=== PATIENT | female | born 1990 | race Hispanic/Latino ===

== ENCOUNTER 2019-10-17 14:00 | Emergency (ER) | payer OTHER, SELFPAY ==
[2019-10-17 14:38] VITALS: BP 103/74; PULSE 92; RESP 16; TEMP 37.1; O2SAT 98
[2019-10-17] MEDS: IBUPROFEN 400 MG TABLET 800 MG PO (15:06)
--- NOTE | 2019-10-17 17:12 | ED_ITS ---
HPI - Headache <MEE Diaz Last Filed: 10/17/19 20:58> General Chief Complaint: Headache Stated Complaint: headach and R ear aching fell at work hit head Time Seen by Provider: 10/17/19 17:12 Source: patient and parts interpreter Mode of arrival: Ambulatory Limitations: no limitations History of Present Illness HPI Narrative: This 29 year old female comes to ED with headache and right earache. She states that she fell at work on Monday where snow was not shoveled, slipped and fell backwards and hit her head on the pavement. She states that she felt woozy for a bit but did not pass out. She rested for about 10 minutes and got up and went back to work. States that she had some headache and mild soreness in her neck and back, but no trouble going back to work, walking etc.. She states that she has not had any vision change or vomiting, however she has had a cough for about a week with a little bit of sore throat when she coughs. She has not had any known fevers. Monday after she fell in addition to the headache she also noted that she had an earache which has been getting worse. Headache has been persistent but not acutely worse. She states that she came in today mainly due to the earache progressively getting worse over the last few days. She states maybe her chest can feel a little bit tight at times with a cough but no acute dyspnea or chest pain. She denies any sinus pain. She denies any possibility of . She denies any chronic medical problems. She has never been a smoker. She does not have a primary care provider. 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 Related Data Previous Rx's Medication Instructions Recorded amoxicillin-pot clavulanate 1 tab PO Q12H #20 tab 10/17/19 [Augmentin] naproxen 500 mg PO BID PRN #20 tab 10/17/19 Allergies Allergy/AdvReac Type Severity Reaction Status Date / Time No Known Drug Allergies Allergy Verified 10/17/19 14:43 Review of Systems <MEE Diaz Last Filed: 10/17/19 20:58> Review of Systems ROS Unobtainable: All systems reviewed & are unremarkable except as noted in HPI and below Patient History <MEE Diaz Last Filed: 10/17/19 20:58> Medical History (Updated 10/17/19 @ 18:15 by Anh Souza PA-C) No chronic problems (Acute) Surgical History (Updated 10/17/19 @ 18:15 by Anh Souza PA-C) Status post (Acute) Social History Smoking Status: Never smoker Smoking Status: Never smoker Substance Use Type: does not use Exam <Anh Souza PA-C - Last Filed: 10/17/19 20:58> Narrative Exam Narrative: GENERAL APPEARANCE: Patient sitting comfortably, in no distress. HEAD: No sinus TTP. No scalp laceration or hematoma visible EYES: PERRL, EOMI. EARS: Normal auditory canals, right TM is intact, erythematous and retracted, left is normal ORAL CAVITY: Normal oropharynx. THROAT: No erythema or exudate, PND noted NECK/THYROID: Neck supple, full range of motion, no cervical lymphadenopathy. LUNGS: Clear to auscultation bilaterally, persistent dry cough on exam. HEART: RRR without murmur, nl S1, S2, no S3 or S4. EXTREMITIES: No cyanosis or edema DERMATOLOGIC: No exanthem NEUROLOGIC: Alert, oriented, normal speech, gait, and coordination MUSCULOSKELETAL: No point tenderness over the cervical, thoracic or lumbar spine. Mild tenderness over the proximal border of the right trapezius and strap muscle attachments. Full range of motion of the C-spine. Normal range of motion of upper and lower extremities Initial Vital Signs Initial Vital Signs: Vital Signs Temperature 98.7 F 10/17/19 14:38 Pulse Rate 92 H 10/17/19 14:38 Respiratory Rate 16 10/17/19 14:38 Blood Pressure 103/74 10/17/19 14:38 Pulse Oximetry 98 10/17/19 14:38 <April Armando MD - Last Filed: 10/21/19 12:20> Initial Vital Signs Initial Vital Signs: Vital Signs Temperature 98.7 F 10/17/19 14:38 Pulse Rate 92 H 10/17/19 14:38 Respiratory Rate 16 10/17/19 14:38 Blood Pressure 103/74 10/17/19 14:38 Pulse Oximetry 98 10/17/19 14:38 Course <Anh Souza PA-C - Last Filed: 10/17/19 20:58> Course Additional Information: 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 Suspect this is the source of her headache. She has also had upper respiratory symptoms with cough for about a week, well prior to her fall. Suspect given the appearance of her eardrum today she has otitis media unrelated to the fall. Explained I do not think the latter is an L&I issue, however concussion and neck strain are. Advised meloxicam and concussion precautions for headache and neck pain, start antibiotic for otitis, and does need follow-up with a local PCP. Advised she may want to remain off of work to rest over the weekend given all of these issues, and that concussion symptoms are likely to improve over time but does need follow-up. Orders Ordered: Discontinued Medications Ibuprofen (Advil) 800 mg PO NOW ONE Stop: 10/17/19 15:02 Last Admin: 10/17/19 15:06 Dose: 800 mg Documented by: DAVID Vital Signs Vital signs: Vital Signs - 8 hr 10/17/19 14:38 10/17/19 17:13 Temperature 98.7 F 97.8 F Pulse Rate 92 H 72 Respiratory Rate 16 12 Blood Pressure 103/74 Blood Pressure [Left Arm] 106/69 Pulse Oximetry 98 98 <April Armando MD - Last Filed: 10/21/19 12:20> Orders Ordered: Discontinued Medications Ibuprofen (Advil) 800 mg PO NOW ONE Stop: 10/17/19 15:02 Last Admin: 10/17/19 15:06 Dose: 800 mg Documented by: DAVID Vital Signs Vital signs: Vital Signs - 8 hr 10/17/19 14:38 10/17/19 17:13 Temperature 98.7 F 97.8 F Pulse Rate 92 H 72 Respiratory Rate 16 12 Blood Pressure 103/74 Blood Pressure [Left Arm] 106/69 Pulse Oximetry 98 98 Discharge Plan Departure Patient Disposition: Home Clinical Impression: Otitis media Qualifiers: Otitis media type: unspecified nonsuppurative Laterality: right Qualified Code(s): H65.91 - Unspecified nonsuppurative otitis media, right ear Concussion Qualifiers: Encounter type: initial encounter Loss of consciousness presence/duration: without LOC Qualified Code(s): S06.0X0A - Concussion without loss of consciousness, initial encounter Acute neck sprain Qualifiers: Encounter type: initial encounter Qualified Code(s): S13.9XXA - Sprain of joints and ligaments of unspecified parts of neck, initial encounter Discharge Date/Time: 10/17/19 18:21 Instructions: DI for Concussion, Middle Ear Infection, DI for Neck Sprain Activity Restrictions/Additional Instructions: Your right ear looks like you have an ear infection today. This is related to the upper respiratory infection and cough that you have had (not the fall you had at work). I have prescribed an antibiotic for you for this to tack picker at [facility] in [place]. Please start that tonight. When you fell, I think you had a mild concussion and also strained the muscles in the back of your neck. It is common for this to cause headache and soreness. Usually, this gets better with time, however you should avoid mentally strenuous activities, lots of screen time, and heavy labor that will stress your neck. I have prescribed an anti-inflammatory pain medicine call naproxen for you to take for this as well as your ear pain. Please don't take that with any other anti-inflammatory medicines. As we talked about, you should return to the emergency department if you have any new symptoms such as vision change, vomiting, or high fever, difficulty with speech or coordination, or acutely worsening headache. Otherwise, remain off of work for the weekend. Call the hospital instructional technology coordinator tomorrow at [phone]. And let them know you need help with finding a primary care provider to follow up from the emergency room that speaks Frisian. You can also call [facility] in [place] as I believe they have Frisian-speaking providers available. Magallon o?do derecho parece que tiene hira infecci?n de o?do hoy. [place] est? relacionado con la infecci?n de las v?as respiratorias superiores y la tos que pandya tenido (no con la ca?da que tuvo en el trabajo). Te he recetado un ant ibi?khari para que lo recojas en [facility] en [place]. Por favor comienza eso esta noche. Cuando se rambo?, creo que tuvo hira conmoci?n cerebral leve y tambi?n tens? los m?sculos de la parte posterior de magallon ashley. Es com?n que esto cause dolor de wallace y dolor. Por lo general, esto mejora con el tiempo, sin embargo, debe evitar las actividades mentalmente extenuantes, mucho tiempo frente a la pantalla y el trabajo pesado que estresar? magallon ashley. Le he recetado un medicamento antiinflamatorio para el dolor llamado naproxeno para que lo tome junto con magallon dolor de o?do. No tome eso con caitlin?n otro medicamento antiinflamatorio. Clifford mencionamos, debe regresar al departamento de emergencias si tiene alg?n s?ntoma nuevo, vern cambios en la visi?n, v?mitos o fiebre gladys, dificultad para hablar o coordinar, o dolor de wallace que empeora de manera aguda. De lo contrario, permanezca sin trabajo nakia el fin de semana. Llame al coordinador de recursos del hospital md?claude al [phone]. Y h?jarod saber que necesita ayuda para encontrar un proveedor de atenci?n primaria para el seguimiento desde la nando de emergencias que habla espa?ol. Tambi?n puede llamar a [facility] en [place], ya que creo que tienen proveedores de habla hispana disponi Prescriptions: New naproxen 500 mg tablet 500 mg PO BID PRN (Reason: earache/neck pain/PANDYA) Qty: 20 RF: 0 amoxicillin-pot clavulanate [Augmentin] 875-125 mg tablet 1 tab PO Q12H Qty: 20 RF: 0
[2019-10-17 17:13] VITALS: BP 106/69; PULSE 72; RESP 12; TEMP 36.6; O2SAT 98
--- NOTE | 2019-10-17 17:31 | PC.NURSE ---
Addendum entered by Maggy Coronel R.N. 10/17/19 17:33: Telecommunications Operator name Lisa #[id number] Original Note: revenue research analyst called using phone. Anh Souza speaking with patient
== END 2019-10-17 18:21 | disposition home or self-care (01) ==
PROVIDERS: Emergency Provider Internal Medicine
DX: S06.0X0A Concussion without loss of consciousness, initial encounter (principal); S13.9XXA Sprain of joints and ligaments of unspecified parts of neck, initial encounter; H65.91 Unspecified nonsuppurative otitis media, right ear; W00.0XXA Fall on same level due to ice and snow, initial encounter; Y99.0 Civilian activity done for income or pay
CPT/HCPCS: 99282; 99283